=== PATIENT | male | born 1975 ===

== ENCOUNTER 2021-05-28 04:56 | Emergency (ER) | payer OTHER ==
[~2021-05-28] VITALS: Ht 175.3 cm; Wt 77.1 kg
[2021-05-28] MEDS ORDERED: KETOROLAC TROMETH 30 MG/ML 1ML VIAL IV ONE (07:30)
[2021-05-28 07:31] VITALS: BP 147/58
[2021-05-28] MEDS ORDERED: IBUP800T27 PO (07:35)
[2021-05-28] MEDS ORDERED: BACL20TA PO (07:35)
== END 2021-05-28 07:56 | disposition home or self-care (01) ==
LOC: ER 04:56 → EDBD 04:56 → ER 07:56
DX: S43.401A Unspecified sprain of right shoulder joint, initial encounter (principal); S80.02XA Contusion of left knee, initial encounter; Z79.1 Long term (current) use of non-steroidal anti-inflammatories (NSAID); Z79.899 Other long term (current) drug therapy; V49.9XXA Car occupant (driver) (passenger) injured in unspecified traffic accident, initial encounter; Y93.89 Activity, other specified; Y92.89 Other specified places as the place of occurrence of the external cause; Y99.8 Other external cause status
CPT/HCPCS: 71045; 72170; 73562; 96374; 99284; J1885